=== PATIENT | female | born 1960 | race Caucasian/White ===

== ENCOUNTER → 2016-11-04 | Outpatient (CLI) | payer BC | LOC: FIMAGING 11:29 → EDSTATUS 11:30 → FIMAGING 11:31 | PROVIDERS: ATTEND Physician Assistant Surgical | DX: Z09 Encounter for follow-up examination after completed treatment for conditions other than malignant neoplasm (principal); Z97.8 Presence of other specified devices ==

== ENCOUNTER → 2017-01-31 | Outpatient (CLI) | payer BC | LOC: FIMAGING 09:48 | PROVIDERS: ATTEND Neurological Surgery | DX: Z45.41 Encounter for adjustment and management of cerebrospinal fluid drainage device (principal); R51 Headache ==

== ENCOUNTER → 2017-08-11 | Outpatient (CLI) | payer BC | LOC: FIMAGING 08:49 | PROVIDERS: ATTEND Internal Medicine | DX: Z12.31 Encounter for screening mammogram for malignant neoplasm of breast (principal); Z13.820 Encounter for screening for osteoporosis; M85.89 Other specified disorders of bone density and structure, multiple sites; I10 Essential (primary) hypertension; R51 Headache | CPT/HCPCS: G0202 ==